=== PATIENT | female | born 1985 | race Caucasian/White ===

== ENCOUNTER 2017-02-09 04:09 | Emergency (ER) | payer MEDICAID ==
--- NOTE | 2017-02-09 07:08 | ER Document Report ---
ED General - General Chief Complaint: Headache >24 hrs old Stated Complaint: HEADACHE Mode of Arrival: Ambulatory Information source: Patient Notes: 31-year-old female presents with 3 to four-month duration of dizziness and headaches issues with her balance issues with memory and a list of 21 other issues. pt notes she was supposed to have an MRI performed but did not follow- up with primary care physician. Patient notes these episodes are intermittent. Currently she has no symptoms TRAVEL OUTSIDE OF THE [place] IN LAST 30 DAYS: No - HPI Onset: Other Onset/Duration: Intermittent Quality of pain: No pain Severity: Mild Pain Level: Denies Associated symptoms: Other Exacerbated by: Denies Relieved by: Denies Similar symptoms previously: Yes Recently seen / treated by doctor: Yes - Related Data Allergies/Adverse Reactions: diphenhydramine HCl [From Benadryl Allergy] Allergy (Unknown, Verified 02/09/17 04:43) Swelling of tongue Past Medical History - Social History Smoking Status: Never Smoker Cigarette use (# per day): No Chew tobacco use (# tins/day): No Smoking Education Provided: No Frequency of alcohol use: None Drug Abuse: None Family History: Reviewed & Not Pertinent - Past Medical History Cardiac Medical History: Reports: Hx Heart Murmur - as a child Denies: Hx Hypertension, Hx Pulmonary Embolism Pulmonary Medical History: Reports: Hx Asthma - last asthma attack 5 days ago Denies: Hx Sleep Apnea - needs to do study, Hx Tuberculosis Endocrine Medical History: Reports: Hx Hypothyroidism. Denies: Hx Hyperthyroidism Renal/ Medical History: Denies: Hx Ovarian Cysts, Hx Peritoneal Dialysis, Hx Pelvic Inflammatory Disease Malignancy Medical History: Denies: Hx Breast Cancer, Hx Cervical Cancer, Hx Ovarian Cancer GI Medical History: Reports: Hx Gastroesophageal Reflux Disease. Denies: Hx Hiatal Hernia, Hx Ulcer Musculoskeltal Medical History: Reports Hx Fibromyalgia Psychiatric Medical History: Reports: Hx Depression Denies: Hx Bipolar Disorder, Hx Post Traumatic Stress Disorder, Hx Schizophrenia Traumatic Medical History: Denies: Hx Fractures Infectious Medical History: Denies: Hx HIV Past Surgical History: Reports: Hx Section - Immunizations Hx Diphtheria, Pertussis, Tetanus Vaccination: Yes - 2007 Review of Systems - Review of Systems Notes: PHYSICAL EXAMINATION: GENERAL: Well-appearing, well-nourished and in no acute distress. HEAD: Atraumatic, normocephalic. EYES: Pupils equal round and reactive to light, extraocular movements intact, conjunctiva are normal. ENT: Nares patent, oropharynx clear without exudates. Moist mucous membranes. NECK: Normal range of motion, supple without lymphadenopathy LUNGS: Breath sounds clear to auscultation bilaterally and equal. No wheezes rales or rhonchi. HEART: Regular rate and rhythm without murmurs ABDOMEN: Soft, nontender, nondistended abdomen. No guarding, no rebound. No masses appreciated. Female : deferred Musculoskeletal: Normal range of motion, no pitting or edema. No cyanosis. Finger to nose [id number] normal NEUROLOGICAL: Cranial nerves grossly intact. Normal speech, normal gait. Normal sensory, motor exams PSYCH: Normal mood, normal affect. SKIN: Warm, Dry, normal turgor, no rashes or lesions noted. Physical Exam - Vital signs Vitals: Temp Pulse Resp BP Pulse Ox 98.8 F 78 16 123/68 99 02/09/17 04:35 02/09/17 04:35 02/09/17 04:35 02/09/17 04:35 02/09/17 04:35 Course - Re-evaluation Re-evalutation: 02/09/17 07:06 CT of the head no no acute abnormality, patient's symptoms appear to be intermittent and I am unsure of the cause at the moment. Patient will be given follow-up with neurology as CT of the head did not show any mass which would cause her complaints. Patient will require an MRI outpatient for further evaluation and care After performing a Medical Screening Examination, I estimate there is LOW risk for ACUTE GLAUCOMA, TEMPORAL ARTERITIS, MENINGITIS, INCRANIAL HEMORRHAGE, or ISCHEMIC STROKE thus I consider the discharge disposition reasonable. The patient and I have discussed the diagnosis and risks, and we agree with discharging home with close follow-up with the understanding that symptoms and presentations can change. We also discussed returning to the Emergency Department immediately if new or worsening symptoms occur. We have discussed the symptoms which are most concerning (e.g., changing or worsening symptoms, new numbness or weakness, vomiting, fever) that necessitate immediate return. - Vital Signs Vital signs: Temp Pulse Resp BP Pulse Ox 98.8 F 78 16 123/68 99 02/09/17 04:35 02/09/17 04:35 02/09/17 04:35 02/09/17 04:35 02/09/17 04:35 - Diagnostic Test Radiology reviewed: Image reviewed, Reports reviewed Discharge - Discharge Clinical Impression: Neurological deficit, transient Headache Qualifiers: Headache type: unspecified Headache chronicity pattern: unspecified pattern Intractability: not intractable Qualified Code(s): R51 - Headache Condition: Stable Disposition: HOME, SELF-CARE Instructions: Headache ([facility]) Referrals: SOCRATES HERRERA MD [Primary Care Provider] - Follow up as needed COLTON SIMEON MD [ACTIVE STAFF] - Follow up tomorrow
[2017-02-09 07:38] VITALS: BP 117/75
== END 2017-02-09 07:42 | disposition home or self-care (01) ==
LOC: ER 04:09
DX: R51 Headache (principal); R29.818 Other symptoms and signs involving the nervous system; R42 Dizziness and giddiness; Z88.8 Allergy status to other drugs, medicaments and biological substances; J45.909 Unspecified asthma, uncomplicated
CPT/HCPCS: 70450; 99284

== ENCOUNTER → 2017-05-14 | Outpatient (CLI) | payer MEDICAID ==
--- NOTE | 2017-05-14 17:44 | RADIOLOGY REPORT (SQ) ---
EXAM DESCRIPTION: MRI HEAD COMBO COMPLETED DATE/TIME: 05/14/2017 5:18 pm REASON FOR STUDY: PARESTHESIS OF SKIN R20.2 PARESTHESIA OF SKIN COMPARISON: Brain CT scan dated January 2017 and MRI of the brain dated June 2014 TECHNIQUE: Multiplanar imaging includes noncontrasted T1, T2, FLAIR, diffusion with ADC map and post gadolinium contrast T1 sequences. Images stored on PACS. CONTRAST TYPE AND DOSE: 15 mL MultiHance RENAL FUNCTION: None required. The patient is less than 50 years old. LIMITATIONS: None. FINDINGS: ANATOMY: No anomalies. Normal vascular flow voids. Pituitary fossa normal. CSF SPACES: Normal in size and contour. No hemorrhage. CEREBRUM: Sulci and gyri normal in size and contour. Normal white matter signal on FLAIR imaging. No evidence of hemorrhage, mass, or extraaxial fluid collection. No abnormal enhancement post contrast. POSTERIOR FOSSA: No signal alteration. No hemorrhage. No edema, masses, or mass effect. Internal robbin tory canals, cerebellopontine angles, mastoids normal. No enhancing lesions. No abnormal enhancement post contrast. DIFFUSION IMAGING: Negative for acute or subacute infarction. ORBITS: No masses. Globes normal. PARANASAL SINUSES: No fluid levels. Mucosa normal. OTHER: No other significant finding. IMPRESSION: NORMAL MRI OF THE BRAIN WITHOUT AND WITH INTRAVENOUS GADOLINIUM CONTRAST. TECHNICAL DOCUMENTATION: JOB ID: [id number]- All Rights Reserved
== END ==
LOC: RAD 16:13
PROVIDERS: ATTEND Physician Assistant
DX: R20.2 Paresthesia of skin (principal)
CPT/HCPCS: 70553; A9577

== ENCOUNTER 2017-07-18 13:38 | Emergency (ER) | payer MEDICAID ==
--- NOTE | 2017-07-18 13:52 | ER Document Report ---
ED Cardiac - General Stated Complaint: CHEST PAIN Time Seen by Provider: 07/18/17 13:51 Mode of Arrival: Medic Information source: Patient Notes: 31-year-old non smoking, hypothyroid, non hormone (depo in ) female called EMS several hours ago because of chest pain that she has been having intermittently since Thursday. Thursday she started feeling weak and disoriented with a new dry cough. Thursday she developed upper left chest lateral chest wall and left upper back pain upon awakening. It is dull and lasts for several hours and ceases spontaneously. He gets sharper at times it lasts a few seconds. she had a worsening cough chest pain with vomiting 3 due to nausea and drinking fluid. Diarrhea. Thursday her symptoms persisted. Today after her came home she told him she had not been feeling well and was having some dizziness, she stated her "heart was hurting" and was concerned that something serious was going on so she called EMS. States she and her spouse are having issues and has insomnia. Wants to know if she is since home test was indeterminate. TRAVEL OUTSIDE OF THE [place] IN LAST 30 DAYS: No - Related Data Allergies/Adverse Reactions: diphenhydramine HCl [From Benadryl Allergy] Allergy (Unknown, Verified 02/09/17 04:43) Swelling of tongue Past Medical History - General Information source: Patient - Social History Smoking Status: Never Smoker Drug Abuse: None Lives with: Family Family History: Reviewed & Not Pertinent - Past Medical History Cardiac Medical History: Reports: Hx Heart Murmur - as a child Denies: Hx Hypertension, Hx Pulmonary Embolism Pulmonary Medical History: Reports: Hx Asthma - last asthma attack 5 days ago Denies: Hx Sleep Apnea - needs to do study, Hx Tuberculosis Endocrine Medical History: Reports: Hx Hypothyroidism GI Medical History: Reports: Hx Gastroesophageal Reflux Disease Musculoskeltal Medical History: Reports Hx Fibromyalgia Psychiatric Medical History: Reports: Hx Depression Past Surgical History: Reports: Hx Section - Immunizations Hx Diphtheria, Pertussis, Tetanus Vaccination: Yes - 2007 Review of Systems - Review of Systems Constitutional: See HPI EENT: No symptoms reported Cardiovascular: See HPI Respiratory: No symptoms reported Gastrointestinal: See HPI Genitourinary: No symptoms reported Female Genitourinary: See HPI Musculoskeletal: No symptoms reported Skin: No symptoms reported Hematologic/Lymphatic: No symptoms reported Neurological/Psychological: No symptoms reported Physical Exam - Vital signs Vitals: Resp BP Pulse Ox 21 H 112/78 94 07/18/17 14:01 07/18/17 14:01 07/18/17 14:01 Interpretation: Normal - General General appearance: Appears well, Alert In distress: None - HEENT Head: Normocephalic, Atraumatic Eyes: Normal Conjunctiva: Normal Pupils: PERRL Mucous membranes: Normal Pharynx: Normal Neck: Supple. No: Lymphadenopathy - Respiratory Respiratory status: No respiratory distress Chest status: Tender - upper left chest and upper left back point tender Breath sounds: Normal Chest palpation: Normal Notes: 1 right insp wheeze upon deep breath, then resolved - Cardiovascular Rhythm: Regular Heart sounds: Normal auscultation Murmur: No - Abdominal Inspection: Normal Distension: No distension Bowel sounds: Normal Tenderness: Nontender Organomegaly: No organomegaly. No: Hepatomegaly, Splenomegaly - Back Back: Normal, Other - see above - Extremities General upper extremity: Normal inspection, Nontender, Normal color, Normal ROM , Normal temperature General lower extremity: Normal inspection, Nontender, Normal color, Normal ROM , Normal temperature, Normal weight bearing. No: Spring's sign - Neurological Neuro grossly intact: Yes Cognition: Normal Orientation: AAOx4 Conway Coma Scale Eye Opening: Spontaneous Conway Coma Scale Verbal: Oriented Kelsie Coma Scale Motor: Obeys Commands Conway Coma Scale Total: 15 Speech: Normal Motor strength normal: LUE, RUE, LLE, RLE Sensory: Normal - Psychological Associated symptoms: Normal affect, Normal mood - Skin Skin Temperature: Warm Skin Moisture: Dry Skin Color: Normal Skin irregularity: negative: Rash Course - Re-evaluation Re-evalutation: 07/18/17 15:17 increased nausea 07/18/17 17:[address] richardson pt can be dispo home, all labs normal, chest xray is negative. Do not believe this chest pain is cardiac nor PE, her vitals are stable, no SOB, tachypnea. copy of all labs, imaging and ekg given to the pt. - Vital Signs Vital signs: Temp Pulse Resp BP Pulse Ox 98.9 F 78 19 118/73 98 07/18/17 14:07 07/18/17 14:07 07/18/17 17:03 07/18/17 17:03 07/18/17 15:01 - Laboratory Result Diagrams: 07/18/17 13:57 07/18/17 14:49 Laboratory results interpreted by me: 07/18/17 07/18/17 07/18/17 13:57 13:57 14:49 Lymphocytes % 12.0 L Glucose 115 H Creatine Kinase 235 H - EKG Interpretation by Me EKG shows normal: Sinus rhythm Rhythm: NSR Discharge - Discharge Clinical Impression: Cough, Chest wall tenderness, Amenorrhea, Nausea Chest pain Qualifiers: Chest pain type: unspecified Qualified Code(s): R07.9 - Chest pain, unspecified Vomiting Qualifiers: Vomiting type: unspecified Vomiting Intractability: non-intractable Nausea presence: with nausea Qualified Code(s): R11.2 - Nausea with vomiting, unspecified Condition: Good Disposition: HOME, SELF-CARE Instructions: Vomiting ([facility]), Chest Wall Pain ([facility]), Antinausea Medication ([facility] ) Additional Instructions: to er if worse see your doctor for follow u Please complete the patient satisfaction survey if you get one, and return it.. If you do not receive a survey, then you can go to the [facility] website, [email or web address] and place your comments about your very good care. Thank you very much. It was a pleasure being your medical provider today. Referrals: QUINTIN INFANTE MD [Primary Care Provider] - 07/20/17
[2017-07-18] MEDS ORDERED: ASPIRIN 81 MG TABLET, CHEWABLE PO ONE (14:49)
[2017-07-18 15:14] LABS: ABSOLUTE EOSINOPHILS # (AUTO) 0.1 10^3/uL (0.0-0.6); ABSOLUTE LYMPHOCYTES (AUTO) 1.1 10^3/uL (0.5-4.7); ABSOLUTE MONOCYTES (AUTO) 0.8 10^3/uL (0.1-1.4); ABSOLUTE NEUT (AUTO) 7.1 10^3/uL (1.7-8.2); BASOPHILS % (AUTO) 0.3 % (0-2); EOSINOPHILS % (AUTO) 1.6 % (0-6); HEMATOCRIT 38.4 % (36.0-47.0); HEMOGLOBIN 13.3 g/dL (12.0-15.5); HGB HCT DIFFERENCE 1.5; MEAN CORPUSCULAR HEMOGLOBIN 30.5 pg (27.0-33.4); MEAN CORPUSCULAR HGB CONC 34.6 g/dL (32.0-36.0); MEAN CORPUSCULAR VOLUME 88 fl (80-97); MONOCYTES % (AUTO) 8.6 % (3-13); RED BLOOD COUNT 4.36 10^6/uL (3.72-5.28); RED CELL DISTRIBUTION WIDTH 13.1 % (11.5-14.0); SEGMENTED NEUTROPHILS % (AUTO) 77.5 % (42-78); WHITE BLOOD COUNT 9.1 10^3/uL (4.0-10.5)
[2017-07-18] MEDS ORDERED: ONDANSETRON 4 MG TAB.RAPDIS PO ONE (15:16)
[2017-07-18 15:28] LABS: APPEARANCE,URINE CLEAR; BILIRUBIN,URINE NEGATIVE (NEGATIVE); GLUCOSE, URINE NEGATIVE (NEGATIVE); KETONES,URINE NEGATIVE (NEGATIVE); LEUKOCYTE ESTERASE,URINE NEGATIVE (NEGATIVE); NITRITE,URINE NEGATIVE (NEGATIVE); PROTEIN,URINE NEGATIVE (NEGATIVE); URINE SPECIFIC GRAVITY 1.004; UROBILINOGEN,URINE NEGATIVE mg/dL (<2.0)
[2017-07-18 15:32] LABS: CREATINE KINASE MB 0.83 ng/mL (<4.55)
[2017-07-18 15:33] LABS: TROPONIN I < 0.012 ng/mL
[2017-07-18 15:35] LABS: ALANINE AMINOTRANSFERASE 34 U/L (9-52); ALBUMIN 4.5 g/dL (3.5-5.0); ALKALINE PHOSPHATASE 97 U/L (38-126); ANION GAP 14 (5-19); ASPARTATE AMINO TRANSFERASE 32 U/L (14-36); BILIRUBIN,DIRECT 0.4 mg/dL (0.0-0.4); BILIRUBIN,TOTAL 0.7 mg/dL (0.2-1.3); BLOOD UREA NITROGEN 9 mg/dL (7-20); CARBON DIOXIDE 24 mmol/L (22-30); CHLORIDE 103 mmol/L (98-107); CREATININE RESULT 0.81 mg/dL (0.52-1.25); GLUCOSE 115 mg/dL (75-110); LIPASE 66.3 U/L (23-300); POTASSIUM 3.7 mmol/L (3.6-5.0); SODIUM 141.1 mmol/L (137-145); TOTAL PROTEIN 7.2 g/dL (6.3-8.2)
--- NOTE | 2017-07-18 15:57 | RADIOLOGY REPORT (SQ) ---
EXAM DESCRIPTION: CHEST PA/LAT COMPLETED DATE/TIME: 07/18/2017 3:42 pm REASON FOR STUDY: chest pain COMPARISON: None. EXAM PARAMETERS: NUMBER OF VIEWS: two views TECHNIQUE: Digital Frontal and Lateral radiographic views of the chest acquired. RADIATION DOSE: NA LIMITATIONS: none FINDINGS: LUNGS AND PLEURA: No opacities, masses or pneumothorax. No pleural effusion. MEDIASTINUM AND HILAR STRUCTURES: No masses or contour abnormalities. HEART AND VASCULAR STRUCTURES: Heart normal size. No evidence for failure. BONES: No acute findings. HARDWARE: None in the chest. OTHER: No other significant finding. IMPRESSION: NO SIGNIFICANT RADIOGRAPHIC FINDING IN THE CHEST. TECHNICAL DOCUMENTATION: JOB ID: [id number] [employer]- All Rights Reserved
[2017-07-18 17:16] VITALS: BP 118/73
--- NOTE | 2017-07-18 21:04 | EKG REPORT ---
SEVERITY:- NORMAL ECG - SINUS RHYTHM : Confirmed by: Emerald Gonzalez 18-Jul-2017 21:03:32
== END 2017-07-18 17:47 | disposition home or self-care (01) ==
LOC: ER 13:38
DX: R07.9 Chest pain, unspecified (principal); R05 Cough; N91.2 Amenorrhea, unspecified; R11.0 Nausea; R11.2 Nausea with vomiting, unspecified; E03.9 Hypothyroidism, unspecified
CPT/HCPCS: 93005; 99285; 36415; 87086; 82553; 82550; 83690; 84443; 84703; 85025; 80053; 81001; 84484; 71020; 93010; S0119